=== PATIENT | male | born 1985 | race Caucasian/White ===

== ENCOUNTER 2017-10-20 12:04 | Emergency (ER) | payer OTHER ==
[2017-10-20 13:23] LABS: MEAN CORPUSCULAR HEMOGLOBIN 30.8 pg (27.0-33.0); MEAN CORPUSCULAR HGB CONC 34.6 g/dl (32.0-36.5); PLATELET COUNT, AUTOMATED 215 10^3/uL (150-450); RED CELL DISTRIBUTION WIDTH 12.9 % (11.5-14.5); WHITE BLOOD COUNT 7.2 10^3/uL (4.0-10.0)
[2017-10-20 13:37] LABS: CONTROL LINE MONO INT CTR LINE PRESENT
[2017-10-20 13:52] LABS: ALBUMIN 3.9 GM/DL (3.2-5.2); ALBUMIN/GLOBULIN RATIO 1.05 (1.00-1.93); ALKALINE PHOSPHATASE 55 U/L (45-117); ALT/SGPT 30 U/L (12-78); ANION GAP 4 MEQ/L (8-16); AST/SGOT 18 U/L (7-37); BILIRUBIN,DIRECT 0.1 MG/DL (0.0-0.2); BILIRUBIN,TOTAL 0.4 MG/DL (0.2-1.0); BLOOD UREA NITROGEN 10 MG/DL (7-18); CALCIUM LEVEL 8.8 MG/DL (8.5-10.1); CARBON DIOXIDE LEVEL 32 MEQ/L (21-32); CHLORIDE LEVEL 104 MEQ/L (98-107); CREATININE FOR GFR 1.14 MG/DL (0.70-1.30); GLOMERULAR FILTRATION RATE > 60.0 (>60); GLUCOSE, FASTING 91 MG/DL (70-105); POTASSIUM SERUM 4.1 MEQ/L (3.5-5.1); SODIUM LEVEL 140 MEQ/L (136-145); TOTAL PROTEIN 7.6 GM/DL (6.4-8.2)
== END 2017-10-20 14:40 | disposition home or self-care (01) ==
LOC: M ED 12:04
DX: R53.81 Other malaise (principal); R53.83 Other fatigue
CPT/HCPCS: 71020

== ENCOUNTER 2017-12-04 20:28 | Emergency (ER) | payer OTHER ==
[2017-12-04] MEDS: AUGMENTIN 875 MG TAB PO (21:14)
== END 2017-12-04 22:16 | disposition home or self-care (01) ==
LOC: M ED 20:28
DX: H65.92 Unspecified nonsuppurative otitis media, left ear (principal); J02.9 Acute pharyngitis, unspecified; R07.89 Other chest pain
CPT/HCPCS: 87880